=== PATIENT | female | born 1975 | race Caucasian/White ===

== ENCOUNTER 2023-11-09 14:48 | Outpatient (CLI) | payer OTHER, SELFPAY ==
--- OUTSIDE RECORDS SUMMARY | 2023-11-09 14:51 | XMS_ITS | Patient Health Record ---
Author Name Unknown Organization [facility] Address [address] [place] [address] Care Team Providers Care Rough Carpenter Name Role Phone Linette Lira Primary Care Provider Renzo Jeannette Unavailable [phone] ALLERGIES No Known Allergies REASON FOR REFERRAL No Information MEDICATIONS Medication SIG (Take, Route, Frequency, Duration) Notes Start Date End Date Status Calcium 1200 6642-8309 MG-UNIT Calcium 1200( 6032-0752NM-JHRP Oral ) Active -Hx Entry Oral for 0 11/10/2019 Active Magnesium 400 MG Magnesium( 400MG Ora l ) Active -Hx Entry Oral for 0 11/10/2019 Active Magnesium Active Calcium Active SOCIAL HISTORY Tobacco Use: Social History Observation Description Date Details (start date - stop date) Never Smoker NA - NA Sex Assigned At : Social History Observation Description Sex Assigned At Unknown Tobacco Use/Smoking Question Answer Notes Are you a nonsmoker Alcohol Screen (Audit-C) Question Answer Notes Did you have a drink containing alcohol in the p ast year? Yes Points 0 Interpretation Negative Sexual History Question Answer Notes Had sex in the past 12 months (vaginal, oral, or anal)? Yes PROBLEMS Problem Type ICD Code Onset Dates Problem Status W/U Status Risk SNOMED Code Notes Problem Women's annual routine gynecological examination (Z01.419) Active confirmed Gynecological examination normal (5231886132781 04) Impression: Adult Female Plan: Discussed healthy lifestyle, balanced nutrition, exercise for at least 30 mins 5 days per week. She was encouraged to continue with eating healthily and stress reduction measures. The importance of applying sun screen prior to being out in the sun was advised. Vaccines recommended for the patient: Influenza All her questions were addressed Problem Urinary urgency (R39.15) Active confirmed Urgent desire to urinate (95333788) Impression: Urgency of Micturition Plan: The patient was reassured that she does not have a Urinary Tract infection. She was encouraged to urinate before it becomes urgent. However if the urgency worsens she will need to be evaluated and treated for the problem All her questions were addressed Problem Vaginal discharge (N89.8) Active confirmed Vaginal discharge (241900324) Impression: Bacterial Vaginitis Plan: Patient informed of Bacterial vaginitis. She would be treated with 2% Clindamycin vaginal cream. Also advised to take sitz baths with Epsom salts in the water, and to abstain from sexual activity until treatment is complete. Simple measures to prevent recurrent vaginitis were discussed with the patient these included use of Probiotics or including fermented foods in her diet. Also selectively using the Boric Acid vaginal capsules prior to her menstrual period for 3-5 nights. All of her questions were addressed Problem PMS (premenstrual syndrome) (N94.3) Active confirmed Premenstrual tension syndrome (82497362) Impression: PMS Plan:Lifestyle changes were discussed that would decrease her symptoms and dietary changes. It was recommended that she take a Vitamin B Complex, Magnesium and Vitamin D3. She will try these changes and follow up in three months All of her questions were addressed Problem Diastasis of rectus abdominis (M62.08) Active confirmed Diastasis of muscle (205326980) Impression: Diastasis of Rectus Muscles Plan: It was explained to the patient that I will refer her to the hernia clinic for evaluation and management All of her questions were addressed Problem Perimenopausal symptom (N95.1) Active confirmed Menopause (784083562) Impression: Perimenopause Symptoms Plan: It was explained to the patient that she is going through the perimenopausal phase and most likely there are changes in her hormones which in turn are causing her symptoms. I will check her hormone levels and recommend treatment according to the results In the meanwhile it was recommended that she takes Magnesium to prevent the leg cramps and melatonin 2.5 MGs 1 hour prior to bedtime. This will enable her to get some sleep and relieve her leg cramps All of her questions were addressed Problem Bulky or enlarged uterus (N85.2) Active confirmed Hypertrophy of uterus (336054636) Impression: Bulky Uterus Plan: The patient was informed that her uterus felt bulky on palpation. I will evaluate the cause by a pelvic ultrasound scan All of her questions were addressed Problem FH: breast cancer (Z80.3) Active confirmed Family histor y of malignant neoplasm of breast (975065148) Problem Fibrocystic breast changes, bilateral (N60.11, N60.12) Active confirmed Impression: Bilateral very small dense breasts Plan: It was explained to the patient that I will order a breast ultrasound scan for her. I do not know if a mammogram is able to be done accurately All of her questions were addressed PLAN OF TREATMENT No Information Insurance Providers Payer Name Payer Address Payer Phone Subscriber Number Group Number Insured Name Patient Relationship to Insured Coverage Start Date Coverage End Date [employer] [address] [address] [place] [id number] [employer] [place] Self - patient is the insured MEDICAL (GENERAL) HISTORY Medical History History ICD Code parathyroid addenoma (benign and removed ) Surgical History Surgery Date(Month/Year) Parathyroidectomy 2019 Tonsilectomy PE tubes as a child
--- NOTE | 2023-11-09 15:00 | CRLHL7_ITS ---
For Patients: As a result of the Century Cures Act, medical imaging exams and procedure reports are released immediately into your electronic medical record. You may view this report before your referring provider. If you have questions, please contact your health care provider. BILATERAL SCREENING MAMMOGRAM WITH COMPUTER-AIDED DETECTION AND TOMOSYNTHESIS TECHNIQUE: CC and MLO views were obtained. These mammographic images have been obtained using full-field digital technique. These mammographic images were interpreted with the benefit of computer-aided detection. Breast Tomosynthesis was used in this interpretation. COMPARISON FILM: 01/20/21, 01/11/20, 11/22/18. FINDINGS: The breasts are extremely dense, which lowers the sensitivity of mammography IMPRESSION: There is no radiographic evidence for malignancy. ASSESSMENT: BI-RADS Category 1: Negative RECOMMENDATION: Routine screening mammogram in 1 year. A lay language report of this examination will be provided to the patient. Mc Funez M.D. Diagnostic Radiologist [email or web address] ENEIDA/darling / be/Dictated by: Mc Funez MD @ 11/10/2023 8:53:00 AM (Electronically Signed)
== END 2023-11-09 14:49 | disposition home or self-care (01) ==
LOC: MAMMO 14:49
PROVIDERS: Visit Provider Physician Assistant
DX: Z12.31 Encounter for screening mammogram for malignant neoplasm of breast (principal); R92.2 Inconclusive mammogram
CPT/HCPCS: 77063; 77067

== ENCOUNTER 2024-12-21 15:13 | Outpatient (CLI) | payer BC, SELFPAY ==
--- NOTE | 2024-12-21 15:20 | CRLHL7_ITS ---
For Patients: As a result of the Century Cures Act, medical imaging exams and procedure reports are released immediately into your electronic medical record. You may view this report before your referring provider. If you have questions, please contact your health care provider. BILATERAL SCREENING MAMMOGRAM WITH COMPUTER-AIDED DETECTION AND TOMOSYNTHESIS TECHNIQUE: CC and MLO views were obtained. These mammographic images have been obtained using full-field digital technique. These mammographic images were interpreted with the benefit of computer-aided detection. Breast Tomosynthesis was used in this interpretation. COMPARISON FILM: 11/09/23, 01/20/21, 01/11/20. FINDINGS: The breasts are extremely dense, which lowers the sensitivity of mammography. IMPRESSION: There is no radiographic evidence for malignancy. ASSESSMENT: BI-RADS Category 2: Benign RECOMMENDATION: Routine screening mammogram in 1 year. A lay language report of this examination will be provided to the patient. Mc Funez M.D. Diagnostic Radiologist [email or web address] SP/Dictated by: Mc Funez MD @ 12/22/2024 10:39:00 AM (Electronically Signed)
== END 2024-12-21 15:14 | disposition home or self-care (01) ==
LOC: MAMMO 15:16
PROVIDERS: Visit Provider Physician Assistant
DX: Z12.31 Encounter for screening mammogram for malignant neoplasm of breast (principal); R92.343 Mammographic extreme density, bilateral breasts
CPT/HCPCS: 77063; 77067